=== PATIENT | female | born 2000 | race Caucasian/White ===

== ENCOUNTER 2020-08-12 19:04 | Emergency (ER) | payer MEDICAID ==
[2020-08-12] MEDS ORDERED: Ondansetron 4 MG Tab.DIS PO ONE (19:05)
[2020-08-12 19:52] VITALS: BP 122/71; PULSE 74
[2020-08-12] MEDS ORDERED: Ondansetron 4 MG/2 ML SDV IVPUSH ONE (20:38)
[2020-08-12] MEDS ORDERED: Sodium Chloride 0.9% 1,000 ML IV ONE (20:38)
--- NOTE | 2020-08-12 21:05 | EDM.PDOC ---
ED HPI GENERAL MEDICAL PROBLEM - General Chief Complaint: Gastrointestinal Problem Stated Complaint: 4 - 8 WKS , THROWING UP, NOT EATING Time Seen by Provider: 08/12/20 20:54 Source of Information: Reports: Patient, RN, RN Notes Reviewed History Limitations: Reports: No Limitations - History of Present Illness INITIAL COMMENTS - FREE TEXT/NARRATIVE: Patient presents to the ED via personal vehicle with complaints of nausea and vomiting in . She is ; the patient states she is unsure of her exact LMP date, but notes it is sometime in early May. She notes a positive test in early June when attempting to start on control. She states she will be following with a provider in [place] for OBGYN, but has not yet had her first appointment. She denies fever, shaking chills, abdominal pain, dysuria, hematuria, melena, or hematochezia. She does attest to headache, dyspepsia, anorexia, and chronic diarrhea. She reports a recent history of an eating disorder and lost roughly 50lbs in four months prior to this . She feels as though she may not be eating well enough and causing her nausea and dyspepsia. She denies tobacco, alcohol, or recreational drug use. Lower Abdomen Pain Score (Numeric/FACES): 3 - Related Data Allergies Allergy/AdvReac Type Severity Reaction Status Date / Time No Known Allergies Allergy Verified 08/12/20 19:45 Home Meds: Home Meds buPROPion HCL [Bupropion Xl] 150 mg PO ASDIRECTED 08/12/20 [History] Past Medical History - Past Health History Medical/Surgical History: Denies Medical/Surgical History HEENT History: Reports: None Cardiovascular History: Reports: None Respiratory History: Reports: None Gastrointestinal History: Reports: None Genitourinary History: Reports: None LEAN ENGINEER History: Reports: None Musculoskeletal History: Reports: None Neurological History: Reports: None Psychiatric History: Reports: None Endocrine/Metabolic History: Reports: None Hematologic History: Reports: None Immunologic History: Reports: None Oncologic (Cancer) History: Reports: None Dermatologic History: Reports: None - Infectious Disease History Infectious Disease History: Reports: None - Past Surgical History Head Surgeries/Procedures: Reports: None Social & Family History - Tobacco Use Tobacco Use Status *Q: Never Tobacco User - Recreational Drug Use Recreational Drug Use: No ED ROS GENERAL - Review of Systems Review Of Systems: Comprehensive ROS is negative, except as noted in HPI. ED EXAM - Physical Exam Exam: See Below Exam Limited By: No Limitations General Appearance: Alert, No Apparent Distress Respiratory/Chest: No Respiratory Distress, Lungs Clear, Normal Breath Sounds, No Accessory Muscle Use, Chest Non-Tender Cardiovascular: Normal Peripheral Pulses, Regular Rate, Rhythm, No Edema, No Gallop, No JVD, No Murmur, No Rub GI/Abdominal Exam: Soft, Non-Tender, No Organomegaly, No Distention, No Abnormal Bruit, No Mass, Pelvis Stable, Abnormal Bowel Sounds (Hypoactive bowel sounds) Rectal Exam: Deferred (Female) Exam: Other (Not performed as patient here for dehydration; no vaginal bleeding, discharge, or cramping) Back Exam: Normal Inspection, Full Range of Motion. No: CVA Tenderness (L), CVA Tenderness (R) Neurological: Alert, Oriented, CN II-XII Intact, Normal Cognition, Normal Gait, No Motor/Sensory Deficits Psychiatric: Normal Affect, Normal Mood Skin Exam: Warm, Dry, Intact, Normal Color, No Rash. No: Ecchymosis, Erythema, Jaundice, Mottled, Pallor, Petechiae Course - Vital Signs Last Recorded V/S: Last Vital Signs Temp 97.9 F 08/12/20 19:51 Pulse 74 08/12/20 19:51 Resp 16 08/12/20 19:51 BP 122/71 08/12/20 19:51 Pulse Ox 100 08/12/20 19:51 - Orders/Labs/Meds Orders: Active Orders 24 hr Category Date Time Status CULTURE URINE [RM] Stat Lab 08/12/20 19:53 Received Labs: Laboratory Tests 08/12/20 08/12/20 08/12/20 Range/Units 19:53 19:53 20:47 WBC 8.7 (5.0-10.0) 10^3/uL RBC 4.45 (4.2-5.4) 10^6/uL Hgb 13.0 (12.0-16.0) g/dL Hct 37.3 (37.0-47.0) % MCV 83.8 (80-100) fL MCH 29.2 (27.0-34.0) pg MCHC 34.9 (33.0-35.0) g/dL Plt Count 208 (150-450) 10^3/uL Neut % (Auto) 68.5 (42.2-75.2) % Lymph % (Auto) 24.0 (20.5-50.1) % Baldwin % (Auto) 6.3 (2-8) % Eos % (Auto) 1.0 (1.0-3.0) % Baso % (Auto) 0.2 (0.0-1.0) % Sodium (136-145) mmol/L Potassium (3.5-5.1) mmol/L Chloride (98-107) mmol/L Carbon Dioxide (21-32) mmol/L Anion Gap (7-13) mEq/L BUN (7-18) mg/dL Creatinine (0.55-1.02) mg/dL Est Cr Clr Drug Dosing mL/min Estimated GFR (MDRD) BUN/Creatinine Ratio (No establ ref range) Glucose (74-99) mg/dL Calcium (8.5-10.1) mg/dL Total Bilirubin (0.2-1.0) mg/dL AST (15-37) U/L ALT (14-59) U/L Alkaline Phosphatase (46-116) U/L Total Protein (6.4-8.2) g/dL Albumin (3.4-5.0) g/dL Globulin Albumin/Globulin Ratio HCG, Quant (0-6) mIU/mL Urine Color Yellow (YELLOW) Urine Appearance Slightly cloudy (CLEAR) Urine pH 7.5 (5.0-9.0) Ur Specific [place] 1.020 (1.005-1.030) Urine Protein Negative (NEGATIVE) Urine Glucose (UA) Negative (NEGATIVE) Urine Ketones Negative (NEGATIVE) Urine Occult Blood Negative (NEGATIVE) Urine Nitrite Negative (NEGATIVE) Urine Bilirubin Negative (NEGATIVE) Urine Urobilinogen 0.2 (0.2-1.0) mg/dL Ur Leukocyte Esterase Trace H (NEGATIVE) Urine RBC 0-5 /HPF Urine WBC 10-20 H (0-5/HPF) /HPF Ur Epithelial Cells Few (NOT SEEN) /HPF Amorphous Sediment Rare (NOT SEEN) /HPF Urine Bacteria Few (0-FEW/HPF) /HPF Urine Mucus Rare (NOT SEEN) /LPF Urine Other See note Urine HCG, Qual Positive 08/12/20 08/12/20 Range/Units 20:47 20:47 WBC (5.0-10.0) 10^3/uL RBC (4.2-5.4) 10^6/uL Hgb (12.0-16.0) g/dL Hct (37.0-47.0) % MCV (80-100) fL MCH (27.0-34.0) pg MCHC (33.0-35.0) g/dL Plt Count (150-450) 10^3/uL Neut % (Auto) (42.2-75.2) % Lymph % (Auto) (20.5-50.1) % Baldwin % (Auto) (2-8) % Eos % (Auto) (1.0-3.0) % Baso % (Auto) (0.0-1.0) % Sodium 137 (136-145) mmol/L Potassium 3.5 (3.5-5.1) mmol/L Chloride 100 (98-107) mmol/L Carbon Dioxide 26 (21-32) mmol/L Anion Gap 14.5 H (7-13) mEq/L BUN 6 L (7-18) mg/dL Creatinine 0.66 (0.55-1.02) mg/dL Est Cr Clr Drug Dosing 121.33 mL/min Estimated GFR (MDRD) > 60 BUN/Creatinine Ratio 9.1 (No establ ref range) Glucose 83 (74-99) mg/dL Calcium 9.0 (8.5-10.1) mg/dL Total Bilirubin 0.3 (0.2-1.0) mg/dL AST 13 L (15-37) U/L ALT 23 (14-59) U/L Alkaline Phosphatase 66 (46-116) U/L Total Protein 7.6 (6.4-8.2) g/dL Albumin 4.3 (3.4-5.0) g/dL Globulin 3.3 Albumin/Globulin Ratio 1.3 HCG, Quant 40475 H (0-6) mIU/mL Urine Color (YELLOW) Urine Appearance (CLEAR) Urine pH (5.0-9.0) Ur Specific [place] (1.005-1.030) Urine Protein (NEGATIVE) Urine Glucose (UA) (NEGATIVE) Urine Ketones (NEGATIVE) Urine Occult Blood (NEGATIVE) Urine Nitrite (NEGATIVE) Urine Bilirubin (NEGATIVE) Urine Urobilinogen (0.2-1.0) mg/dL Ur Leukocyte Esterase (NEGATIVE) Urine RBC /HPF Urine WBC (0-5/HPF) /HPF Ur Epithelial Cells (NOT SEEN) /HPF Amorphous Sediment (NOT SEEN) /HPF Urine Bacteria (0-FEW/HPF) /HPF Urine Mucus (NOT SEEN) /LPF Urine Other Urine HCG, Qual Meds: Medications Discontinued Medications Generic Name Dose Route Start Last Admin Trade Name Deb PRN Reason Stop Dose Admin Sodium Chloride 1,000 mls @ 999 mls/hr 08/12/20 20:38 08/12/20 20:49 Normal Saline IV 08/12/20 21:38 999 mls/hr .BOLUS ONE Administration Ondansetron HCl 4 mg 08/12/20 20:38 08/12/20 20:49 Zofran IVPUSH 08/12/20 20:39 4 mg ONETIME ONE Administration Ondansetron HCl Confirm 08/12/20 21:45 Zofran Odt Administered 08/12/20 21:46 Dose 16 mg .ROUTE .STK-MED ONE Ondansetron HCl 4 mg 08/12/20 19:05 Zofran Odt PO 08/12/20 19:06 .STK-MED ONE - Re-Assessments/Exams Free Text/Narrative Re-Assessment/Exam: 08/13/20 Will treat nausea and dehydration with Zofran 4mg and NS 1L bolus x1 while labs pending. Patient reports feeling improvement in symptoms with bolus and Zofran. Discussed finding of lab values and physical examination with patient. Discussed rare clue cells noted in urine and BV during ; patient instructed to follow up with her OBGYN regarding this finding as it is an asymptomatic infection at this time. Will treat nausea outpatient with Zofran. Discussed importance of nutrition and hydration during with patient. Discussed red flag signs and symptoms which would warrant reevaluation. Patient verbalized understanding and agreement with the plan of care. Departure - Departure Time of Disposition: 21:43 Disposition: Home, Self-Care 01 Condition: Good Clinical Impression: Bacterial vaginosis in , Nausea and vomiting in - Discharge Information *PRESCRIPTION DRUG MONITORING PROGRAM REVIEWED*: Not Applicable *COPY OF PRESCRIPTION DRUG MONITORING REPORT IN PATIENT MECCA: Not Applicable Referrals: PCP,None [Primary Care Provider] - Forms: ED Department Discharge Additional Instructions: Rx: Zofran ODT 1.) Follow up with your OBGYN in 3-5 days regarding today's visit. 2.) Drink small sips of water frequently to avoid dehydration. 3.) Eat small, frequent meals to avoid nausea. Sepsis Event Note (ED) - Evaluation Sepsis Screening Result: No Definite Risk - My Orders Last 24 Hours: My Active Orders 08/12/20 19:53 CULTURE URINE [RM] Stat - Assessment/Plan Last 24 Hours: My Active Orders 08/12/20 19:53 CULTURE URINE [RM] Stat
[2020-08-12 21:11] LABS: ANION GAP 14.5 mEq/L (7-13); CHLORIDE,CL 100 mmol/L (98-107); SODIUM,NA 137 mmol/L (136-145)
[2020-08-12] MEDS ORDERED: Ondansetron 4 MG Tab.DIS ONE (21:45)
== END 2020-08-12 21:59 | disposition home or self-care (01) ==
LOC: DL.ED 19:04
DX: O23.591 Infection of other part of genital tract in pregnancy, first trimester (principal); B96.89 Other specified bacterial agents as the cause of diseases classified elsewhere; O21.9 Vomiting of pregnancy, unspecified; Z3A.01 Less than 8 weeks gestation of pregnancy
CPT/HCPCS: 36415; 80053; 81001; 81025; 84702; 85025; 87086; 96374; 99284; A9270; J2405; J7030; 99283